=== PATIENT | female | born 1975 | race Caucasian/White ===

== ENCOUNTER → 2016-05-05 | Outpatient (CLI) | payer BC ==
[~2016-05-05] MED LIST: ALBU18002 INH; ALBU1AER9 INH; ARFO15NE INH; ASTN; AZIT250T PO; BECL0.3A INH; BRVIN NEB; CLON0.5T3 PO; IBUP-1050 PO; LEVO-371 PO; LEVO1TAB33 PO; MONT1TAB3 PO; NSNN50; OMAL150S INJ; PRED20TA PO; QVRINH80 PO; TIOT1AER2 INH; VENL37.593 PO; VENL75CA PO; VORI1TAB9 PO
--- NOTE | 2016-05-05 12:53 | DIAGNOSTIC IMAGING REPORT ---
CHEST 2 VIEWS ROUTINE CLINICAL HISTORY: J47.9 [id number] COMPARISON STUDY: 07/02/2015 FINDINGS: The cardiac and mediastinal contours are normal. There is no evidence of focal pulmonary consolidation. There is no evidence of failure. No pleural effusions are visualized.[ IMPRESSION: No active disease in the chest. Electronically signed by: Chuy Brown M.D. 05/05/2016 12:52 PM Dictated Date/Time: 05/05/2016 12:52 PM
== END | disposition home or self-care (01) ==
LOC: C.RAD1850 12:32
PROVIDERS: ATTEND Internal Medicine Critical Care Medicine
DX: J47.9 Bronchiectasis, uncomplicated (principal); J45.909 Unspecified asthma, uncomplicated; B44.81 Allergic bronchopulmonary aspergillosis; R05 Cough

== ENCOUNTER → 2016-05-27 | Outpatient (CLI) | payer BC ==
[~2016-05-27] MED LIST changes: -LEVO-371 PO; +LEVO5TAB2 PO
== END | disposition home or self-care (01) ==
LOC: C.PAPS 15:41
PROVIDERS: ATTEND Obstetrics & Gynecology
DX: Z01.419 Encounter for gynecological examination (general) (routine) without abnormal findings (principal); Z87.42 Personal history of other diseases of the female genital tract

== ENCOUNTER → 2016-07-02 | Outpatient (CLI) | payer BC ==
--- NOTE | 2016-07-02 12:25 | DIAGNOSTIC IMAGING REPORT ---
CHEST 2 VIEWS ROUTINE CLINICAL HISTORY: Asthma. Bronchiectasis. COMPARISON STUDY: Chest radiograph May 05, 2016. FINDINGS: Lung volumes are normal. There is no pneumothorax or pleural effusion. Pulmonary vascularity is normal. Cardiomediastinal silhouette is stable. There is no evidence of pulmonary edema. Left upper lobe bronchiectasis is again noted. The appearance of the chest is unchanged. IMPRESSION: No acute cardiopulmonary findings. Electronically signed by: Amado Benavides M.D. 07/02/2016 12:24 PM Dictated Date/Time: 07/02/2016 12:23 PM
== END | disposition home or self-care (01) ==
LOC: C.RAD1850 11:54
PROVIDERS: ATTEND Internal Medicine Critical Care Medicine
DX: J45.909 Unspecified asthma, uncomplicated (principal); J47.9 Bronchiectasis, uncomplicated; B44.81 Allergic bronchopulmonary aspergillosis

== ENCOUNTER 2016-11-02 20:20 | Emergency (ER) | payer BC ==
[~2016-11-02] VITALS: Ht 172.7 cm; Wt 110.0 kg
[~2016-11-02 20:20] MED LIST changes: -ALBU18002 INH; -ARFO15NE INH; -ASTN; -AZIT250T PO; +LEVO-371 PO; -LEVO5TAB2 PO; -OMAL150S INJ; -QVRINH80 PO; -TIOT1AER2 INH; -VENL37.593 PO
[2016-11-02 20:29] VITALS: TEMP 36.8; Ht 172.7 cm; Wt 110.0 kg
[2016-11-02] MEDS ORDERED: OPTIRAY 320 IV PRN (21:15)
[2016-11-02 21:33] LABS: BASO % 0.6 %; BASO ABS # 0.05 K/uL (0-0.2); COMPLETE YES; EOS % 4.2 %; HEMATOCRIT 36.6 % (37-47); IG% 0.4 %; LYMPH % 34.6 %; MEAN CELL VOLUME 90.6 fL (80-100); MEAN CORPUSCULAR HEMOGLOBIN 30.9 pg (25-34); MEAN CORPUSCULAR HGB CONC 34.2 g/dl (32-36); MEAN PLATELET VOLUME 10.2 fL (7.4-10.4); MONO % 8.4 %; NEUT % 51.8 %; PLATELET COUNT 286 K/uL (130-400); RED BLOOD COUNT 4.04 M/uL (4.2-5.4)
[2016-11-02 21:55] LABS: CREATININE 0.98 mg/dl (0.60-1.20)
[2016-11-02 21:55] LABS: ISTAT CREATININE 0.9 mg/dl (0.6-1.3); ISTAT HEMOGLOBIN 11.9 g/dl (12.0-16.0); ISTAT IONIZED CALCIUM 1.14 mmol/l (1.12-1.32)
[2016-11-02 21:56] LABS: BUN/CREATININE RATIO 14.1 (10-20); CALCIUM 8.8 mg/dl (8.5-10.1); POTASSIUM 3.9 mmol/L (3.5-5.1)
[2016-11-02 22:00] LABS: INR 0.9 (0.9-1.1); PARTIAL THROMBOPLASTIN RATIO 0.9; PROTHROMBIN TIME (PATIENT) 9.7 SECONDS (9.0-12.0)
[2016-11-02] MEDS ORDERED: QVRINH80 PO (22:04)
[2016-11-02] MEDS ORDERED: ARFO15NE INH (22:04)
[2016-11-02] MEDS ORDERED: OMAL150S INJ (22:04)
[2016-11-02] MEDS ORDERED: ALBU18002 INH (22:04)
[2016-11-02] MEDS ORDERED: TIOT1AER2 INH (22:04)
[2016-11-02] MEDS ORDERED: ASTN (22:05)
[2016-11-02] MEDS ORDERED: VENL37.593 PO (22:05)
--- NOTE | 2016-11-02 22:39 | DIAGNOSTIC IMAGING REPORT ---
CT ANGIOGRAM OF THE CHEST CLINICAL HISTORY: Left-sided chest pain COMPARISON STUDY: 07/02/2015 TECHNIQUE: Following the IV administration of 109 mL of Optiray-320, CT angiogram of the thorax was performed from the thoracic inlet to the lung bases utilizing the pulmonary embolus protocol. Images are reviewed in the axial, sagittal, and coronal planes. IV contrast was administered without complication. MIP imaging was performed. A dose lowering technique was utilized adhering to the principles of ALARA. CT DOSE: 624.39 mGy.cm FINDINGS: AP window lymph nodes are slightly prominent but not pathologically enlarged by size criteria. These have decreased in size when compared the preceding study. There is no pathologic hilar or axillary lymphadenopathy. There was no evidence of thoracic aortic dilatation. There were no pulmonary artery filling defects to indicate acute pulmonary embolism. No pleural effusions are visualized. There is stable left basilar atelectasis/scarring. There are postsurgical changes within the left lower lobe. There are persistent left upper lobe bronchiectatic changes. IMPRESSION: 1. No evidence of acute pulmonary embolism 2. No evidence of focal pulmonary consolidation 3. Left upper lobe cylindrical bronchiectasis. Electronically signed by: Chuy Brown M.D. 11/02/2016 10:37 PM Dictated Date/Time: 11/02/2016 10:32 PM
[2016-11-02] MEDS ORDERED: AZIT250T PO (22:54)
[2016-11-02] MEDS ORDERED: AZITHROMYCIN 250 MG TAB PO STA (22:54)
[2016-11-02 22:59] VITALS: O2SAT 95
[2016-11-02 23:00] VITALS: BP 153/110; PULSE 77; O2SAT 98
--- NOTE | 2016-11-02 23:00 | EMERGENCY ROOM VISIT NOTE ---
History Report prepared by Jacinda: Damine Sears Under the Supervision of: Dr. Yusuf Huizar M.D. First contact with patient: 20:50 Chief Complaint: OTHER COMPLAINT Stated Complaint: PAIN IN LF SIDE,LUNG CONGESTION,WORRIED ABOUT PE History of Present Illness The patient is a 41 year old female who presents to the Emergency Room with complaints of constant left sided pain that started a couple of days ago. She rates her pain as a 4/10 in severity. The patient states that her pain is worsened with a deep breath and laying down. She reports that she has been coughing for the last two weeks. The patent states that her cough has been productive with yellow mucous the last couple of days. She also reports shortness of breath but only upon exertion. She reports that she saw Dr. Spann at the [facility] prior to arrival when they sent her here. 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 She reports that during the time, she was on control. The patient reports that there was history of bleeding. 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 The patient states that she sees Dr. Lara for her extensive history of lung problems. She admits that she had a lobectomy at [place] 3 years ago due to her history of bronchiectasis. 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 She admits to a copper implant. the patient denies chest pain, immunocompromise, fever, edema to extremities, smoking, and taking a BCP. Source of History: patient Onset: a couple of days ago Position: other (left upper back) Symptom Intensity: 4/10 Timing: constant Modifying Factors (Worsening): other (laying down, deep breath) Associated Symptoms: + cough, No fevers, No chest pain Review of Systems See HPI for pertinent positives & negatives. A total of 10 systems reviewed and were otherwise negative. Past Medical & Surgical Medical Problems: (1) Bronchitis (2) section (3) Factor V Leiden mutation (4) History of - pneumonia (5) partial lobe resection (6) Pulmonary embolism (7) sinus surgery (8) VATS Procedure Family History Asthma MOTHER BROTHER Bronchiectasis MOTHER FH: factor V Leiden deficiency SISTER Social History Smoking Status: Never Smoker Alcohol Use: occasionally Drug Use: none Marital Status: Housing Status: lives with family Occupation Status: employed Current/Historical Medications Scheduled Arformoterol Tartrate (Brovana), 15 MCG INH BID Azithromycin (Zithromax), 250 MG PO DAILY Beclomethasone Dip (Qvar), 2 PUFF PO DAILY Levocetirizine Dihydrochloride (Xyzal), 1 TAB PO DAILY Montelukast Sodium (Singulair), 10 MG PO DAILY Omalizumab (Xolair), 1 DOSE INJ [id number] Tiotropium [place] (Spiriva Respimat), 1 PUFF INH DAILY Venlafaxine Hcl (Venlafaxine Extended Rel), 37.5 MG PO DAILY Scheduled PRN Albuterol Sulfate (Proair Respiclick), 2 PUFF INH Q4 PRN for Wheezing Azelastine Hcl (Astelin Nasal Salix), 1 SPRAY NA BID PRN for Nasal Congestion Ibuprofen (Advil), 200 MG PO DIRECTED PRN for Pain Allergies Coded Allergies: Quinolones (Verified Allergy, Mild, Rash (tolerates Avelox & Levaquin), 07/18/15) 12/29/10: Dr. Gibbons spoke with patient and she tolerates Levaquin as well. Dust (Verified Allergy, Unknown, 07/18/15) Vancomycin (Verified Adverse Reaction, Mild, ITCHY SCALP, 07/18/15) Physical Exam Vital Signs Date Time Temp Pulse Resp B/P (MAP) Pulse Ox O2 Delivery O2 Flow Rate FiO2 11/02/16 21:29 84 11/02/16 20:29 36.8 83 18 157/101 96 Room Air Physical Exam Constitutional: Vital signs reviewed. Eyes: Pupils are equal round reactive to light. Conjunctiva are noninjected. ENT: Pharynx is clear without erythema or exudate. Mucous membranes are moist. Neck supple without meningeal signs. Respiratory: Clear to auscultation bilaterally. Breath sounds are equal bilaterally. Cardiovascular: Regular rate and rhythm. No rubs or gallops. GI: Soft, nondistended and nontender. Bowel sounds are present. Musculoskeletal: No peripheral edema. No lower extremity tenderness. Integumentary: No cyanosis. Neurological: The patient is awake and alert. No focal deficits. Psychiatric: Normal affect. Medical Decision & Procedures ER Provider Diagnostic Interpretation: CT ANGIOGRAM OF THE CHEST CLINICAL HISTORY: Left-sided chest pain COMPARISON STUDY: 07/02/2015 TECHNIQUE: Following the IV administration of 109 mL of Optiray-320, CT angiogram of the thorax was performed from the thoracic inlet to the lung bases utilizing the pulmonary embolus protocol. Images are reviewed in the axial, sagittal, and coronal planes. IV contrast was administered without complication. MIP imaging was performed. A dose lowering technique was utilized adhering to the principles of ALARA. CT DOSE: 624.39 mGy.cm FINDINGS: AP window lymph nodes are slightly prominent but not pathologically enlarged by size criteria. These have decreased in size when compared the preceding study. There is no pathologic hilar or axillary lymphadenopathy. There was no evidence of thoracic aortic dilatation. There were no pulmonary artery filling defects to indicate acute pulmonary embolism. No pleural effusions are visualized. There is stable left basilar atelectasis/scarring. There are postsurgical changes within the left lower lobe. There are persistent left upper lobe bronchiectatic changes. IMPRESSION: 1. No evidence of acute pulmonary embolism 2. No evidence of focal pulmonary consolidation 3. Left upper lobe cylindrical bronchiectasis. Electronically signed by: Chuy Brown M.D. 11/02/2016 10:37 PM Laboratory Results 11/02/16 21:20 Red Blood Count 4.04, Mean Corpuscular Volume 90.6, Mean Corpuscular Hemoglobin 30.9, Mean Corpuscular Hemoglobin Concent 34.2, Mean Platelet Volume 10.2, Neutrophils (%) (Auto) 51.8, Lymphocytes (%) (Auto) 34.6, Monocytes (%) (Auto) 8.4, Eosinophils (%) (Auto) 4.2, Basophils (%) (Auto) 0.6, Neutrophils # (Auto) 4.20, Lymphocytes # (Auto) 2.80, Monocytes # (Auto) 0.68, Eosinophils # (Auto) 0.34, Basophils # (Auto) 0.05 11/02/16 21:20 Test 11/02/16 21:20 11/02/16 21:42 White Blood Count 8.10 K/uL (4.8-10.8) Red Blood Count 4.04 M/uL (4.2-5.4) Hemoglobin 12.5 g/dL (12.0-16.0) Hematocrit 36.6 % (37-47) Mean Corpuscular Volume 90.6 fL (80-100) Mean Corpuscular Hemoglobin 30.9 pg (25-34) Mean Corpuscular Hemoglobin Concent 34.2 g/dl (32-36) Platelet Count 286 K/uL (130-400) Mean Platelet Volume 10.2 fL (7.4-10.4) Neutrophils (%) (Auto) 51.8 % Lymphocytes (%) (Auto) 34.6 % Monocytes (%) (Auto) 8.4 % Eosinophils (%) (Auto) 4.2 % Basophils (%) (Auto) 0.6 % Neutrophils # (Auto) 4.20 K/uL (1.4-6.5) Lymphocytes # (Auto) 2.80 K/uL (1.2-3.4) Monocytes # (Auto) 0.68 K/uL (0.11-0.59) Eosinophils # (Auto) 0.34 K/uL (0-0.5) Basophils # (Auto) 0.05 K/uL (0-0.2) RDW Standard Deviation 40.9 fL (36.4-46.3) RDW Coefficient of Variation 12.3 % (11.5-14.5) Immature Granulocyte % (Auto) 0.4 % Immature Granulocyte # (Auto) 0.03 K/uL (0.00-0.02) Prothrombin Time 9.7 SECONDS (9.0-12.0) Prothromb Time International Ratio 0.9 (0.9-1.1) Activated Partial Thromboplast Time 24.6 SECONDS (21.0-31.0) Partial Thromboplastin Ratio 0.9 D-Dimer 280 ug/L FEU (0-500) Est Creatinine Clear Calc Drug Dose 96.2 ml/min Estimated GFR () 81.9 Estimated GFR (Non- 70.7 BUN/Creatinine Ratio 14.1 (10-20) Calcium Level 8.8 mg/dl (8.5-10.1) Troponin I < 0.015 ng/ml (0-0.045) Chemistry Specimen Hemolysis Bedside Hemoglobin 11.9 g/dl (12.0-16.0) Bedside Hematocrit 35 % (37-47) Bedside Sodium 138 mEq/L (135-144) Bedside Potassium 3.6 mEq/L (3.3-5.0) Bedside Chloride 104 mEq/L (101-112) Bedside Total CO2 23 mEq/l (24-31) Anion Gap 17.0 mmol/L (16-25) Bedside Blood Urea Nitrogen 13 mg/dl (7-18) Bedside Creatinine 0.9 mg/dl (0.6-1.3) Bedside Glucose (other) 94 mg/dl (70-99) Bedside Ionized Calcium (Polo) 1.14 mmol/l (1.12-1.32) ECG Indication: back/shoulder pain Rate (beats per minute): 83 Rhythm: normal sinus Findings: no acute ischemic change, no ectopy ED Course 2052: The patient was evaluated in room A03. A complete history and physical exam was performed. Medical Decision This is a 41-year-old female who presents with thoracic back pain, cough and some shortness of breath. Differential diagnosis includes pulmonary embolism, bronchitis, pleurisy, pneumonia, bronchiectasis. I did perform a limited focused review of portions of the patient's old chart on the electronic medical record. The patient has had no recent pertinent visits to this hospital. I did evaluate the patient as noted above. IV access was established. The patient was placed on a continuous personnel monitor. I did order and personally review the patient's 12-lead EKG as described above. There are no acute ischemic changes. I did order and review the patient's blood work as noted in the electronic medical record. D-dimer and troponin are negative. Given her history of factor V as well as prior history of pulmonary embolism I did feel she was at risk for pulmonary embolism and so despite her negative d-dimer I did order a CT of the chest to rule out PE. I did review the images myself as well as the radiology report as described above. There is no evidence of pulmonary embolism or consolidation. I did discuss the test results with the patient. I did recommend and buttock treatment given her prolonged period of productive cough and bronchiectasis. She was happy with this plan. She was discharged with a prescription for Zithromax and given her first dose here. Impression Primary Impression: Acute thoracic back pain Additional Impressions: Bronchiectasis Bronchitis, acute Scribe Attestation The scribe's documentation has been prepared under my direct and personally reviewed by me in its entirety. I confirm that the note above accurately reflects all work, treatment, procedures, and medical decision making performed by me. Departure Information Prescriptions Azithromycin (Zithromax) 250 Mg Tab 250 MG PO DAILY, #4 TAB Prov: Yusuf Huizar M.D. 11/02/16 Referrals Yusuf Lara MD (PCP) Patient Instructions [facility] Additional Instructions You have been examined and treated today on an emergency basis only. This is not a substitute for, or an effort to provide, complete comprehensive medical care. It is impossible to recognize and treat all injuries or illnesses in a single emergency department visit. It is therefore important that you follow up closely with your physician. Call as soon as possible for an appointment. Return for worsening symptoms or if you develop fever, vomiting, or any other concerning symptoms. Problem Qualifiers Primary Impression: Acute thoracic back pain Back pain laterality: left Qualified Codes: M54.6 - Pain in thoracic spine Additional Impressions: Bronchiectasis Bronchiectasis type: uncomplicated Qualified Codes: J47.9 - Bronchiectasis, uncomplicated Bronchitis, acute Bronchitis organism: unspecified organism Qualified Codes: J20.9 - Acute bronchitis, unspecified
== END 2016-11-02 23:15 | disposition home or self-care (01) ==
LOC: C.EDB 20:21 → C.EDA 23:15
DX: M54.6 Pain in thoracic spine (principal); J47.9 Bronchiectasis, uncomplicated; J20.9 Acute bronchitis, unspecified; Z87.01 Personal history of pneumonia (recurrent); D68.51 Activated protein C resistance; Z86.711 Personal history of pulmonary embolism; Z83.6 Family history of other diseases of the respiratory system; Z79.899 Other long term (current) drug therapy

== ENCOUNTER → 2017-01-08 | Outpatient (CLI) | payer BC ==
[~2017-01-08] MED LIST changes: +ALBU18002 INH; -ALBU1AER9 INH; +ARFO15NE INH; +ASTN; +AZIT250T PO; -BECL0.3A INH; -BRVIN NEB; -CLON0.5T3 PO; -LEVO-371 PO; -LEVO1TAB33 PO; +LEVO5TAB2 PO; -NSNN50; +OMAL150S INJ; -PRED20TA PO; +QVRINH80 PO; +TIOT1AER2 INH; +VENL37.593 PO; -VENL75CA PO; -VORI1TAB9 PO
== END | disposition home or self-care (01) ==
LOC: C.LAB1850 11:24
PROVIDERS: ATTEND Internal Medicine Critical Care Medicine
DX: J02.9 Acute pharyngitis, unspecified (principal)

== ENCOUNTER → 2017-02-04 | Outpatient (CLI) | payer BC ==
--- NOTE | 2017-02-04 14:52 | MAMMOGRAPHY REPORT ---
BILATERAL DIGITAL SCREENING MAMMOGRAM TOMOSYNTHESIS WITH CAD: 02/04/2017 CLINICAL HISTORY: Routine screening. Patient has no complaints. TECHNIQUE: Breast tomosynthesis in addition to standard 2D mammography was performed. Current study was also evaluated with a Computer Aided Detection (CAD) system. COMPARISON: Comparison is made to exams dated: 02/04/2016 mammogram, 11/13/2014 ultrasound, 11/13/2014 mammogram, and 10/30/2014 mammogram - [facility]. BREAST COMPOSITION: The tissue of both breasts is heterogeneously dense, which may obscure small mas ses. FINDINGS: No suspicious masses, calcifications, or areas of architectural distortion are noted in ei ther breast. There has been no significant interval change compared to prior exams. IMPRESSION: ACR BI-RADS CATEGORY 1: NEGATIVE There is no mammographic evidence of malignancy. A 1 year screening mammogram is recommended. The pa tient will receive written notification of the results. Approximately 10% of breast cancers are not detected with mammography. A negative mammographic report should not delay biopsy if a clinically suggestive mass is present. Jyoti Lozano M.D. ah/:02/04/2017 14:36:55 Customer Service Driver: Magda LEE(R)(M), [facility] letter sent: Normal 1/2 BI-RADS Code: ACR BI-RADS Category 1: Negative
== END | disposition home or self-care (01) ==
LOC: C.MAMM 12:07
PROVIDERS: ATTEND Obstetrics & Gynecology
DX: Z12.31 Encounter for screening mammogram for malignant neoplasm of breast (principal)

== ENCOUNTER → 2017-06-04 | Outpatient (CLI) | payer OTHER ==
[~2017-06-04] MED LIST changes: -AZIT250T PO
== END | disposition home or self-care (01) ==
LOC: C.PAPS 14:26
PROVIDERS: ATTEND Obstetrics & Gynecology
DX: Z12.4 Encounter for screening for malignant neoplasm of cervix (principal)